=== PATIENT | female | born 1965 | race American Indian/Alaskan Native ===

== ENCOUNTER 2017-01-11 14:51 | Emergency (ER) | payer MEDICARE ==
--- NOTE | 2017-01-11 16:31 | Emergency Department Report ---
Chief Complaint: Abdominal Pain Stated Complaint: VOMITING/LIGHT HEADED Time Seen by Provider: 01/11/17 16:27 - HPI History of Present Illness: PT states she has been fasting since 11-30-16. PT states for three days she has had darker urine. PT states today she vomited something "goldish brown." PT reports vomiting x 1 week. PT states she went to her development manager and was sent to ED. Pt states she is on a water fast. - ROS Review of Systems: + n/v + abd pain + dark urine - dysuria - Exam Vital Signs: Vital Signs 01/11/17 15:46 Temperature 98.4 F Pulse Rate 79 Respiratory 20 Rate Blood Pressure 133/83 O2 Sat by Pulse 98 Oximetry Physical Exam: PT is obses, non toxic gcs 15, steady gait MSE screening note: Focused history and physical exam performed. Due to findings the following was ordered: labs ED Disposition for MSE Condition: Stable Instructions: Abdominal Pain (ED) Referrals: PRIMARY CARE, [Primary Care Provider] - 3-5 Days
[2017-01-11 16:58] LABS: Hematocrit 43.1 % (30.3-42.9); Hemoglobin 14.1 gm/dl (10.1-14.3); Mean Corpuscular HGB Conc 33 % (30-34); Mean Corpuscular Hemoglobin 28 pg (28-32); Mean Corpuscular Volume 86 fl (79-97); Platelet Count 137 K/mm3 (140-440); Red Blood Count 5.02 M/mm3 (3.65-5.03); Red Cell Distribution Width 14.3 % (13.2-15.2); White Blood Count 3.5 K/mm3 (4.5-11.0)
[2017-01-11 17:17] LABS: Alanine Aminotransferase 89 units/L (7-56); Albumin 4.2 g/dL (3.9-5); Albumin/Globulin Ratio 1.3 %; Alkaline Phosphatase 59 units/L (35-129); Anion Gap 21 mmol/L; BUN/Creatinine Ratio 6.25; Blood Urea Nitrogen 5 mg/dL (7-17); Carbon Dioxide 29 mmol/L (22-30); Chloride 96.3 mmol/L (98-107); Glucose 105 mg/dL (65-100); Lipase 33 units/L (13-60); Potassium 3.5 mmol/L (3.6-5.0); Sodium 143 mmol/L (137-145); Total Protein 7.4 g/dL (6.3-8.2)
[2017-01-11 17:18] LABS: Magnesium 1.6 mg/dL (1.7-2.3)
[2017-01-11 19:03] LABS: Basophils % (Manual) 0 % (0.0-1.8); Blastocytes % (Manual) 0 %; Eosinophils % (Manual) 0 % (0.0-4.3)
[2017-01-11 19:04] LABS: Anisocytosis 1+; Diff Status Complete; Large Platelets 1+; Platelet Estimate Consistent w Auto
[2017-01-12] MEDS ORDERED: NACL 0.9% 1000 ML 1,000 ML IV ONE ×2 (05:15→06:27)
[2017-01-12] MEDS ORDERED: ZOFRAN IV ONE (05:15)
[2017-01-12 05:23] LABS: Bilirubin,Urine NEG (Negative); Blood,Urine NEG (Negative); Ketones,Urine TR mg/dL (Negative); Leukocyte Esterase,Urine TR (Negative); Mucus,Urine 3+ /HPF; Nitrite,Urine NEG (Negative)
[2017-01-12] MEDS ORDERED: K-DUR PO ONE (06:27)
[2017-01-12] MEDS ORDERED: MAGNESIUM SULFATE 2GM/50ML 2 GM/50 ML BAG IV ONE (06:27)
--- NOTE | 2017-01-12 07:43 | Emergency Department Report ---
ED N/V/D HPI - General Chief complaint: Abdominal Pain Stated complaint: VOMITING/LIGHT HEADED Time Seen by Provider: 01/11/17 16:27 Source: patient Mode of arrival: Ambulatory Limitations: No Limitations - History of Present Illness Initial comments: 51-year-old female with a past medical history hypertension (stop meds over a month ago), previous hysterectomy, and chronic foot pain presents to the hospital complains of nausea, vomiting, and diarrhea times one week. Diarrhea is only on occasion and patient had 2-3 episodes of vomiting today. She has been on a water fast diet since 11/30/2016. She is now vomiting the water and unable to tolerate it. Patient has also been noncompliant with her blood pressure medication since beginning this diet. Patient expresses a history of iron deficiency anemia and complains of feeling lightheaded and weak with dark urine. Upper abdominal pain reported by triage the patient denies pain currently. Patient states she had epigastric pain during vomiting episodes only. No reports of fever. PMD: Doni Segovia - Related Data Previous Rx's Medication Instructions Recorded Last Taken Type Ondansetron [Zofran Odt] 4 mg PO Q8HR PRN #20 tab.rapdis 01/12/17 Unknown Rx Allergies Allergy/AdvReac Type Severity Reaction Status Date / Time Sulfa (Sulfonamide Allergy Angioedema Verified 01/11/17 15:46 Antibiotics) ED Review of Systems ROS: Stated complaint: VOMITING/LIGHT HEADED Other details as noted in HPI Comment: All other systems reviewed and negative Other: Constitutional: No fevers chills Eyes: No eye pain visual changes ENT: No ear pain or throat pain Neck: Denies pain Respiratory: Denies cough wheezing shortness of breath Cardiovascular: Denies chest pain, palpitations, syncope GI: As per HPI : Denies dysuria Musculoskeletal: Denies back pain Skin: Denies rash, lesions, erythema Neurologic: Denies headache, numbness, weakness Psychiatric: Denies suicidal ideation, hallucinations ED Past Medical Hx - Past Medical History Previous Medical History?: Yes Hx Hypertension: Yes - Surgical History Past Surgical History?: Yes Additional Surgical History: ACHILLES TENDON / HYSTERECTOMY / ANEMIA - Social History Smoking Status: Never Smoker Substance Use Type: None - Medications Home Medications: Home Medications Medication Instructions Recorded Confirmed Last Taken Type Ondansetron [Zofran Odt] 4 mg PO Q8HR PRN #20 tab.rapdis 01/12/17 Unknown Rx ED Physical Exam - General Limitations: No Limitations - Other Other exam information: General: No limitations, patient is alert in no acute distress Head exam: Atraumatic, normocephalic Eyes exam: Normal appearance, nonicteric sclerae ENT: Moist mucous membrane, normal oropharynx Neck exam: Normal inspection, full range of motion Respiratory exam: Clear to auscultation bilateral, no wheezes, rales, crackles Cardiovascular: Mild tachycardia Abdomen: Soft, nondistended, and nontender, with normal bowel sounds, no rebound, or guarding Extremity: Full range of motion normal inspection no deformity Back: Normal Inspection, full range of motion, no tenderness Neurologic: Alert, oriented x3, cranial nerves intact, no motor or sensory deficit Psychiatric: normal affect, normal mood Skin: Warm, dry, intact ED Course Vital Signs 01/11/17 01/11/17 01/12/17 15:46 23:13 04:27 Temperature 98.4 F 98.7 F Pulse Rate 79 61 Respiratory 20 14 Rate Blood Pressure 133/83 157/104 O2 Sat by Pulse 98 100 97 Oximetry 01/12/17 01/12/17 01/12/17 04:30 05:01 05:11 Temperature Pulse Rate 66 76 Respiratory 9 L 14 16 Rate Blood Pressure 129/80 129/80 O2 Sat by Pulse 99 97 99 Oximetry 01/12/17 01/12/17 01/12/17 05:30 06:00 06:30 Temperature Pulse Rate 61 78 65 Respiratory 12 14 9 L Rate Blood Pressure 129/80 129/80 129/80 O2 Sat by Pulse 96 98 99 Oximetry 01/12/17 01/12/17 07:00 07:30 Temperature Pulse Rate 72 Respiratory 12 Rate Blood Pressure 136/79 134/69 O2 Sat by Pulse 97 96 Oximetry - Reevaluation(s) Reevaluation #1: 01/12/17 07:43 The case is received in the ED: Normal saline 1 L prior to my evaluation and additional normal saline 1 L ordered Zofran 4 mg Potassium by mouth Magnesium IV ED Medical Decision Making - Lab Data Result diagrams: 01/11/17 16:37 01/11/17 16:37 Lab Results 01/11/17 01/11/17 01/11/17 Range/Units 16:37 16:37 16:37 WBC 3.5 L (4.5-11.0) K/mm3 RBC 5.02 (3.65-5.03) M/mm3 Hgb 14.1 (10.1-14.3) gm/dl Hct 43.1 H (30.3-42.9) % MCV 86 (79-97) fl MCH 28 (28-32) pg MCHC 33 (30-34) % RDW 14.3 (13.2-15.2) % Plt Count 137 L (140-440) K/mm3 Ransom % (Auto) Digital Pre Press Operator Add Manual Diff Complete Total Counted 100 Seg Neuts % (Manual) 40.0 (40.0-70.0) % Band Neutrophils % 6.0 % Lymphocytes % (Manual) 35.0 (13.4-35.0) % Reactive Lymphs % (Man) 3.0 % Monocytes % (Manual) 16.0 H (0.0-7.3) % Eosinophils % (Manual) 0 (0.0-4.3) % Basophils % (Manual) 0 (0.0-1.8) % Metamyelocytes % 0 % Myelocytes % 0 % Promyelocytes % 0 % Blast Cells % 0 % Nucleated RBC % Not Reportable Seg Neutrophils # Man 1.4 L (1.8-7.7) K/mm3 Band Neutrophils # 0.2 K/mm3 Lymphocytes # (Manual) 1.2 (1.2-5.4) K/mm3 Abs React Lymphs (Man) 0.1 K/mm3 Monocytes # (Manual) 0.6 (0.0-0.8) K/mm3 Eosinophils # (Manual) 0.0 (0.0-0.4) K/mm3 Basophils # (Manual) 0.0 (0.0-0.1) K/mm3 Metamyelocytes # 0.0 K/mm3 Myelocytes # 0.0 K/mm3 Promyelocytes # 0.0 K/mm3 Blast Cells # 0.0 K/mm3 WBC Morphology Not Reportable Hypersegmented Neuts Not Reportable Hyposegmented Neuts Not Reportable Hypogranular Neuts Not Reportable Smudge Cells Not Reportable Toxic Granulation Not Reportable Toxic Vacuolation Not Reportable Dohle Bodies Not Reportable Pelger-Huet Anomaly Not Reportable Grupo Rods Not Reportable Platelet Estimate Consistent w auto Clumped Platelets Not Reportable Plt Clumps, EDTA Not Reportable Large Platelets 1+ Giant Platelets Not Reportable Platelet Satelliting Not Reportable Plt Morphology Comment Not Reportable RBC Morphology Not Reportable Dimorphic RBCs Not Reportable Polychromasia Not Reportable Hypochromasia Not Reportable Poikilocytosis Not Reportable Anisocytosis 1+ Microcytosis Not Reportable Macrocytosis Not Reportable Spherocytes Not Reportable Pappenheimer Bodies Not Reportable Sickle Cells Not Reportable Target Cells Not Reportable Tear Drop Cells Not Reportable Ovalocytes Not Reportable Helmet Cells Not Reportable [place] Bodies Not Reportable [place] Rings Not Reportable Iris Cells Not Reportable Bite Cells Not Reportable Crenated Cell Not Reportable Elliptocytes Not Reportable Acanthocytes (Spur) Not Reportable Rouleaux Not Reportable Hemoglobin C Crystals Not Reportable Schistocytes Not Reportable Malaria parasites Not Reportable Mike Bodies Not Reportable Hem Pathologist Commnt No Sodium 143 (137-145) mmol/L Potassium 3.5 L (3.6-5.0) mmol/L Chloride 96.3 L (98-107) mmol/L Carbon Dioxide 29 (22-30) mmol/L Anion Gap 21 mmol/L BUN 5 L (7-17) mg/dL Creatinine 0.8 (0.7-1.2) mg/dL Estimated GFR > 60 ml/min BUN/Creatinine Ratio 6.25 % Glucose 105 H (65-100) mg/dL Calcium 10.0 (8.4-10.2) mg/dL Magnesium 1.60 L (1.7-2.3) mg/dL Total Bilirubin 0.70 (0.1-1.2) mg/dL AST 65 H (5-40) units/L ALT 89 H (7-56) units/L Alkaline Phosphatase 59 (35-129) units/L Total Creatine Kinase 189 H (30-135) units/L Total Protein 7.4 (6.3-8.2) g/dL Albumin 4.2 (3.9-5) g/dL Albumin/Globulin Ratio 1.3 % Lipase 33 (13-60) units/L Urine Color (Yellow) Urine Turbidity (Clear) Urine pH (5.0-7.0) Ur Specific [place] (1.003-1.030) Urine Protein (Negative) mg/dL Urine Glucose (UA) (Negative) mg/dL Urine Ketones (Negative) mg/dL Urine Blood (Negative) Urine Nitrite (Negative) Urine Bilirubin (Negative) Urine Urobilinogen (<2.0) mg/dL Ur Leukocyte Esterase (Negative) Urine WBC (Auto) (0.0-6.0) /HPF Urine RBC (Auto) (0.0-6.0) /HPF U Epithel Cells (Auto) (0-13.0) /HPF Amorphous Crystals Urine Mucus /HPF 01/12/17 Range/Units 05:05 WBC (4.5-11.0) K/mm3 RBC (3.65-5.03) M/mm3 Hgb (10.1-14.3) gm/dl Hct (30.3-42.9) % MCV (79-97) fl MCH (28-32) pg MCHC (30-34) % RDW (13.2-15.2) % Plt Count (140-440) K/mm3 Ransom % (Auto) Add Manual Diff Total Counted Seg Neuts % (Manual) (40.0-70.0) % Band Neutrophils % % Lymphocytes % (Manual) (13.4-35.0) % Reactive Lymphs % (Man) % Monocytes % (Manual) (0.0-7.3) % Eosinophils % (Manual) (0.0-4.3) % Basophils % (Manual) (0.0-1.8) % Metamyelocytes % % Myelocytes % % Promyelocytes % % Blast Cells % % Nucleated RBC % Seg Neutrophils # Man (1.8-7.7) K/mm3 Band Neutrophils # K/mm3 Lymphocytes # (Manual) (1.2-5.4) K/mm3 Abs React Lymphs (Man) K/mm3 Monocytes # (Manual) (0.0-0.8) K/mm3 Eosinophils # (Manual) (0.0-0.4) K/mm3 Basophils # (Manual) (0.0-0.1) K/mm3 Metamyelocytes # K/mm3 Myelocytes # K/mm3 Promyelocytes # K/mm3 Blast Cells # K/mm3 WBC Morphology Hypersegmented Neuts Hyposegmented Neuts Hypogranular Neuts Smudge Cells Toxic Granulation Toxic Vacuolation Dohle Bodies Pelger-Huet Anomaly Grupo Rods Platelet Estimate Clumped Platelets Plt Clumps, EDTA Large Platelets Giant Platelets Platelet Satelliting Plt Morphology Comment RBC Morphology Dimorphic RBCs Polychromasia Hypochromasia Poikilocytosis Anisocytosis Microcytosis Macrocytosis Spherocytes Pappenheimer Bodies Sickle Cells Target Cells Tear Drop Cells Ovalocytes Helmet Cells Byrne-[place] Bodies [place] Rings Iris Cells Bite Cells Crenated Cell Elliptocytes Acanthocytes (Spur) Rouleaux Hemoglobin C Crystals Schistocytes Malaria parasites Mike Bodies Hem Pathologist Commnt Sodium (137-145) mmol/L Potassium (3.6-5.0) mmol/L Chloride (98-107) mmol/L Carbon Dioxide (22-30) mmol/L Anion Gap mmol/L BUN (7-17) mg/dL Creatinine (0.7-1.2) mg/dL Estimated GFR ml/min BUN/Creatinine Ratio % Glucose (65-100) mg/dL Calcium (8.4-10.2) mg/dL Magnesium (1.7-2.3) mg/dL Total Bilirubin (0.1-1.2) mg/dL AST (5-40) units/L ALT (7-56) units/L Alkaline Phosphatase (35-129) units/L Total Creatine Kinase (30-135) units/L Total Protein (6.3-8.2) g/dL Albumin (3.9-5) g/dL Albumin/Globulin Ratio % Lipase (13-60) units/L Urine Color Tamara (Yellow) Urine Turbidity Clear (Clear) Urine pH 5.0 (5.0-7.0) Ur Specific [place] 1.024 (1.003-1.030) Urine Protein 100 mg/dl (Negative) mg/dL Urine Glucose (UA) Neg (Negative) mg/dL Urine Ketones Tr (Negative) mg/dL Urine Blood Neg (Negative) Urine Nitrite Neg (Negative) Urine Bilirubin Neg (Negative) Urine Urobilinogen 2.0 (<2.0) mg/dL Ur Leukocyte Esterase Tr (Negative) Urine WBC (Auto) 10.0 H (0.0-6.0) /HPF Urine RBC (Auto) 5.0 (0.0-6.0) /HPF U Epithel Cells (Auto) 7.0 (0-13.0) /HPF Amorphous Crystals Few Urine Mucus 3+ /HPF - Medical Decision Making Patient without any vomiting in the ED after Zofran treatment. She did have some persistent nausea which improved with Phenergan. Patient has been able tolerate by mouth. Positive urine output after IV fluids. Dizziness improved and vital signs stable. Patient was discharged home with nausea medication and encouraged to eat appropriate meals and advance diet as tolerated - Differential Diagnosis dehydration, electrolyte abnormality, gastritis, renal insufficiency Critical Care Time: No Critical care attestation.: If time is entered above; I have spent that time in minutes in the direct care of this critically ill patient, excluding procedure time. ED Disposition Clinical Impression: Dehydration, Gastroenteritis, Hypokalemia, Hypomagnesemia Disposition: - TO HOME OR SELFCARE Is pt being admited?: No Does the pt Need Aspirin: No Condition: Stable Instructions: Dehydration (ED), Gastroenteritis (ED), Hypokalemia (ED), Hypomagnesemia (ED) Additional Instructions: Take the medication as prescribed. Return if symptoms worsen. Advance your diet as tolerated. Follow-up with your physician. Prescriptions: Ondansetron [Zofran Odt] 4 mg PO Q8HR PRN #20 tab.rapdis PRN Reason: Nausea And Vomiting Referrals: PRIMARY CARE, [Primary Care Provider] - 2-3 Days Time of Disposition: 09:53
[2017-01-12] MEDS ORDERED: PHENERGAN PO ONE (08:46)
[2017-01-12 10:55] VITALS: BP 113/68
== END 2017-01-12 11:15 | disposition home or self-care (01) ==
LOC: ED 14:51
DX: K52.9 Noninfective gastroenteritis and colitis, unspecified (principal); E86.0 Dehydration; E87.6 Hypokalemia; E83.42 Hypomagnesemia; I10 Essential (primary) hypertension
CPT/HCPCS: 36415; 80053; 81001; 82550; 83690; 83735; 85007; 85025; 96361; 96365; 96375; 99283; J2405; J3475; J7030; Q0169